=== PATIENT | female | born 1985 | race Caucasian/White ===

== ENCOUNTER → 2018-05-25 | Outpatient (CLI) | payer SELFPAY ==
[~2018-05-25] MED LIST: CATHETER FLUSH 10 ML SYR IV PRN
--- NOTE | 2018-05-25 12:37 | Diagnostic Imaging Report ---
INDICATION: Mid and epigastric abdominal pain. TECHNIQUE: The patient was administered 5.4 mCi of technetium 99m Choletec and imaging over the abdomen was performed. At 1 hour, the patient ingested 8 ounces of Ensure and a gallbladder ejection fraction was calculated. FINDINGS: There is homogeneous uptake of activity by the liver. There is prompt excretion of activity into the common duct and gallbladder. Normal passage of activity into the small bowel is seen. The gallbladder ejection fraction is normal at 43%. IMPRESSION: Normal HIDA scan and gallbladder ejection fraction. Dictated by: Dictated on workstation # [id number]
== END ==
LOC: CARD 09:12
PROVIDERS: ATTEND Registered Nurse
DX: R10.13 Epigastric pain (principal); R11.0 Nausea; R19.7 Diarrhea, unspecified
CPT/HCPCS: 78227

== ENCOUNTER 2022-06-02 11:21 | Outpatient (CLI) | payer BC ==
[~2022-06-02] VITALS: Ht 167.7 cm; Wt 90.2 kg
[2022-06-02 11:15] VITALS: BP 133/75
[2022-06-02 11:47] LABS: BILIRUBIN,URINE NEGATIVE (NEGATIVE); CLARITY,URINE CLEAR; COLOR,URINE YELLOW; GLUCOSE, URINE (UA) NEGATIVE (NEGATIVE); KETONES,URINE NEGATIVE (NEGATIVE); LEUKOCYTE ESTERASE ,URINE 1+ (NEGATIVE); NITRITE,URINE NEGATIVE (NEGATIVE); PROTEIN,URINE NEGATIVE (NEGATIVE)
[2022-06-02 12:00] LABS: BACTERIA,URINE TRACE /HPF; WBC,URINE 0-2 /HPF
--- NOTE | 2022-06-03 08:06 | Physician Query-Final Dx ---
Clinic Account Progress/Dx Physician Query: Please give diagnosis Please include # weeks gestation Date of Service Jun 02, 2022 at 11:21 WHEAT,AugJun 03, 2022 08:06
== END 2022-06-02 12:35 | disposition home or self-care (01) ==
LOC: WSo 11:21 → LDRP 11:21 → WSo 12:35
PROVIDERS: ATTEND Family Medicine
DX: O20.9 Hemorrhage in early pregnancy, unspecified (principal); Z3A.00 Weeks of gestation of pregnancy not specified
CPT/HCPCS: 81000; 87088; G0463; 99212

== ENCOUNTER 2022-07-19 22:31 | Emergency (ER) | payer BC ==
[~2022-07-19] VITALS: Ht 168 cm; Wt 90.2 kg
[2022-07-19 22:36] VITALS: BP 138/93
[2022-07-19] MEDS ORDERED: HYDR28OI2 TP (22:40)
[2022-07-19] MEDS ORDERED: PNV1COMB25 PO (22:40)
[2022-07-19] MEDS ORDERED: LEVO25TA2 PO (22:40)
--- NOTE | 2022-07-19 23:02 | ED General ---
General Chief Complaint: Rect Problems Stated Complaint: 35 WEEKS , PAINFUL HEMORRHOIDS Nursing Triage Note: c/o rectal pain x2 weeks, worse x2 days. reports hx of hemmorhoids. 38 weeks . (TRACI TAVERAS) History of Present Illness Date Seen by Provider: Jul 19, 2022 Time Seen by Provider: 22:40 Initial Comments 37 yo female 35wks here for painful hemorrhoids x2 days. Pt said she had a flare last month that lasted 3-4 days and bled. She was given hydrocortisone cream with relief of sx. Today patient said pain has gotten worse since yesterday. She is unable to sleep, sit and pain is a constant stabbing, burning, throbbing pain. Has associated pain upon defecation but denies any blood per rectum. Pt has been using her hydrocortisone cream from her last flare and has taking Tylenol with no relief. No other complaints (TRACI TAVERAS) Allergies and Home Medications Allergies Coded Allergies: No Known Drug Allergies (Unverified , 07/19/22) Patient Home Medication List Home Medication List Reviewed: Yes (TRACI TAVERAS) Hydrocortisone Acetate (Hydrocortisone) 1 % Oint...g., 28 GM TP, (Reported) Entered as Reported by: KIN KAM on 07/19/222239 Last Action: New Order Levothyroxine Sodium (Synthroid) 25 Mcg Tablet, Unknown Dose PO, (Reported) Entered as Reported by: KIN KAM on 07/19/222239 Last Action: New Order Pnv #116/Iron Fumarate/FA/Dha (Expecta Combo Pack) 28 Mg Iron-800 Mcg- 200 Mg Combo..pkg, 1 EACH PO, (Reported) Entered as Reported by: KIN KAM on 07/19/222239 Last Action: New Order Review of Systems Review of Systems Constitutional: no symptoms reported EENTM: no symptoms reported Respiratory: no symptoms reported Cardiovascular: no symptoms reported Gastrointestinal: no symptoms reported Genitourinary: no symptoms reported : Yes Musculoskeletal: no symptoms reported Skin: no symptoms reported Psychiatric/Neurological: No Symptoms Reported Hematologic/Lymphatic: No Symptoms Reported Immunological/Allergic: no symptoms reported (TRACI TAVERAS) Past Dfxzpep-Lsuoda-Dotlpf Hx Patient Social History Tobacco Use?: No Substance use?: No Alcohol Use?: No Pt feels they are or have been: No (TRACI TAVERAS) Past Medical History Surgery/Hospitalization HX: c-sect, appy, hemmorhoids Appendectomy, Section Respiratory: No Currently Using CPAP: No Currently Using BIPAP: No Cardiac: No Neurological: No : Yes Hypothyroidsim (TRACI TAVERAS) Physical Exam Vital Signs Vital Signs - First Documented 07/19/22 22:36 Temp 36.9 Pulse 103 Resp 16 B/P (MAP) 138/93 (108) Pulse Ox 97 O2 Delivery Room Air (SHALINI BENÍTEZ MD) Vital Signs Capillary Refill : Less Than 3 Seconds (TRACI TAVERAS) Height, Weight, BMI Height: '" Weight: lbs. oz. kg; 31.00 BMI Method: General Appearance: No Apparent Distress, WD/WN HEENT: PERRL/EOMI, TMs Normal, Normal ENT Inspection, Pharynx Normal Neck: Full Range of Motion, Normal Inspection, Non Tender, Supple Respiratory: Chest Non Tender, Lungs Clear, Normal Breath Sounds, No Accessory Muscle Use, No Respiratory Distress Cardiovascular: Regular Rate, Rhythm, No Edema, No Gallop, No JVD, No Murmur, Normal Peripheral Pulses Extremity: Normal Capillary Refill, Normal Inspection, Normal Range of Motion, Non Tender Neurologic/Psychiatric: Alert, Oriented x3, No Motor/Sensory Deficits, Normal Mood/Affect, zinc etcher II-XII Norm as Tested (TRACI TAVERAS) Progress/Results/Core Measures Suspected Sepsis SIRS Temperature: Pulse: 103 Respiratory Rate: 16 Blood Pressure 138 /93 Mean: 108 (TRACI TAVERAS) Results/Orders Vital Signs/I&O 07/19/22 22:36 Temp 36.9 Pulse 103 Resp 16 B/P (MAP) 138/93 (108) Pulse Ox 97 O2 Delivery Room Air (SHALINI BENÍTEZ MD) Vital Signs/I&O Capillary Refill : Less Than 3 Seconds (TRACI TAVERAS) Blood Pressure Mean: 108 Departure Impression Primary Impression: Bleeding external hemorrhoids Disposition: 07 AGAINST MEDICAL ADVICE Condition: Against Medical Advice Departure-Patient Inst. Referrals: GRACIELA MA MD (PCP) Primary Care Physician ARIANA SOOD APRN (Family) Primary Care Physician Medical Student Attestation and Attending Note: This patient was interviewed and examined by Traci Taveras, MS 3. I was unable to interview or examine this patient personally as she left AMA before I was able to examine her. I was delayed in seeing this patient due to management of a t maren sensitive critical care case. Patient left without being seen by a physician. (SHALINI BENÍTEZ MD) Copy Copies To 1: GRACIELA MA MD, ANISHA T Jul 19, 2022 23:02 SHALINI BENÍTEZ MD Jul 20, 2022 07:40
== END 2022-07-20 00:18 | disposition left against medical advice (07) ==
LOC: EDUNIT# 22:31 → ER 22:33
DX: O22.43 Hemorrhoids in pregnancy, third trimester (principal); Z28.310 Unvaccinated for COVID-19; Z3A.35 35 weeks gestation of pregnancy

== ENCOUNTER 2022-07-30 05:35 | Outpatient (CLI) | payer BC ==
[~2022-07-30] VITALS: Ht 167.7 cm; Wt 97.7 kg
[~2022-07-30 05:35] MED LIST changes: -CATHETER FLUSH 10 ML SYR IV PRN; +HYDR28OI2 TP; +LEVO25TA2 PO; +PNV1COMB25 PO
[2022-07-30] MEDS ORDERED: LEVO150C4 PO (16:13)
== END 2022-07-30 16:41 | disposition home or self-care (01) ==
LOC: PREOP 05:35
PROVIDERS: ATTEND Obstetrics & Gynecology
DX: Z01.818 Encounter for other preprocedural examination (principal)

== ENCOUNTER 2022-08-06 05:28 | Inpatient (IN) | payer BC ==
[2022-08-06] VITALS (10 sets, daily range): BP systolic 106–137; BP diastolic 61–89
[~2022-08-06] VITALS: Ht 167.7 cm; Wt 98.2 kg
[~2022-08-06 05:28] MED LIST changes: +LEVO150C4 PO
[2022-08-06] MEDS ORDERED: D5 LR IV SOLUTION 1,000 ML IV SCH ×2 (12:45→15:00)
[2022-08-06] MEDS ORDERED: CITRIC ACID/SOB CIT (BICITRA) 30 ML UDC PO ONE (12:45)
[2022-08-06] MEDS ORDERED: METOCLOPRAMIDE INJ 10 MG/2 ML (REGLAN) IV ONE (12:45)
[2022-08-06] MEDS ORDERED: metroNIDAZOLE 500MG/100ML IVPB 100 ML IV ONE (12:45)
[2022-08-06] MEDS ORDERED: FAMOTIDINE 20MG/2ML IV (PEPCID) IV ONE (12:45)
[2022-08-06] MEDS ORDERED: ceFAZolin INJECTION 2,000 MG in NS (IVPB) 50 ML IV ONE (12:45)
[2022-08-06] MEDS ORDERED: LACTATED RINGERS 1,000 ML IV PRN (12:45)
[2022-08-06] MEDS ORDERED: ceFAZolin INJECTION 2,000 MG ONE (13:02)
[2022-08-06] MEDS ORDERED: NS (IVPB) 50 ML ONE (13:03)
[2022-08-06] MEDS ORDERED: OXYTOCIN PRE-MIX DRIP 1,000 ML IV ONE (13:12)
[2022-08-06] MEDS ORDERED: fentaNYL INJ 100 MCG/2 ML AMP ONE (13:12)
[2022-08-06] MEDS ORDERED: ONDANSETRON 4 MG/2 ML (SDV) Z0FRAN ONE (13:12)
[2022-08-06] MEDS ORDERED: BUPIVACAINE 0.5% 30 ML (SENSORCAINE) VIAL ONE (13:20)
[2022-08-06 13:28] LABS: BASOPHILS % (AUTO) 0 % (0-10); EOSINOPHILS # (AUTO) 0.1 10^3/uL (0.0-0.3); EOSINOPHILS % (AUTO) 1 % (0-10); HEMATOCRIT 31 % (35-52); HEMOGLOBIN 10.2 g/dL (11.5-16.0); LYMPHOCYTES # (AUTO) 1.3 10^3/uL (1.0-4.0); LYMPHOCYTES % (AUTO) 16 % (12-44); MEAN CORPUSCULAR HEMOGLOBIN 29 pg (25-34); MEAN CORPUSCULAR HGB CONC 33 g/dL (32-36); MEAN CORPUSCULAR VOLUME 89 fL (80-99); MEAN PLATELET VOLUME 12.1 fL (9.0-12.2); MONOCYTES # (AUTO) 0.6 10^3/uL (0.0-1.0); MONOCYTES % (AUTO) 8 % (0-12); NEUTROPHILS # (AUTO) 5.8 10^3/uL (1.8-7.8); NEUTROPHILS % (AUTO) 74 % (42-75); PLATELET COUNT 131 10^3/uL (130-400); WHITE BLOOD COUNT 7.8 10^3/uL (4.3-11.0)
[2022-08-06] MEDS ORDERED: TETANUS,DIPTH,PERTUSS P/F (BOOSTRIX) 0.5 ML VIAL IM ONE (15:00)
[2022-08-06] MEDS ORDERED: OXYTOCIN PRE-MIX DRIP 500 ML IV SCH (15:00)
[2022-08-06] MEDS ORDERED: PROMETHAZINE INJ 25 MG/ML (PHENERGAN) AMP IM PRN (15:00)
[2022-08-06] MEDS ORDERED: MEPERIDINE (DEMEROL) INJ 100 MG/ML IM PRN (15:00)
[2022-08-06] MEDS ORDERED: KETOROLAC 30 MG/ML VIAL ONE (15:07)
[2022-08-06] MEDS: KETOROLAC 30 MG/ML VIAL IV SCH ×2 (15:08→20:57)
[2022-08-06] MEDS: oxyCODONE/APAP 10/325MG (PERCOCET 10) TABLET PO PRN ×2 (17:01→23:06)
[2022-08-06] MEDS: DOCUSATE SODIUM 100 MG (COLACE) CAP PO SCH (20:33)
[2022-08-07] VITALS: BP 115/68
--- NOTE | 2022-08-07 00:08 | OPERATIVE REPORT ---
DATE OF SERVICE: 08/06/2022 PREOPERATIVE DIAGNOSIS: Term at 39 weeks' gestation with previous . POSTOPERATIVE DIAGNOSIS: Term at 39 weeks' gestation with previous . OPERATIVE PROCEDURE: Repeat low transverse delivery of a viable male with Apgars of 8 and 8 at 1 and 5 minutes respectively, weight of 7 pounds 11 ounces. Cord blood pH of 7.33 and a time of 1355. DESCRIPTION OF PROCEDURE: With the patient in the supine position, under satisfactory spinal analgesia, she was repositioned in supine and prepped and draped in the usual fashion for abdominal surgery. Mijares catheter was placed in the urinary bladder. A repeat Pfannenstiel incision was made through the skin with a scalpel. The patient's abdomen was entered in the usual manner. Bladder retractor was placed in position. Clean scalpel used to make a 4 cm hysterotomy incision transversely across the lower uterine segment that was extended bluntly as well. Soares forceps were applied to facilitate delivery of a vigorous viable male infant. Apgars and stats as noted above. The was bulb suctioned on delivery of the head and again upon completion of delivery. Umbilical cord was doubly clamped and cut and the infant passed to the pediatric nurse in attendance for delivery. Cord bloods were obtained. Placenta delivered spontaneously [place] it was normal with a 3-vessel cord. The uterus was exteriorized and the interior wiped clean with a wet laparotomy sponge. Uterine incision closed with a running locked suture of 2-0 Vicryl. Hemostasis was complete. The uterus was returned to the abdominal cavity. All blood clot and debris removed from the abdominal cavity. Sponge and needle counts were correct. Hemostasis was assured. Anterior parietal peritoneum was closed with running suture of 2-0 Vicryl and the rectus muscles were closed with sutures well. The rectus fascia was closed with 2-0 Vicryl. Subcutaneous tissue was closed with 2-0 Vicryl and the skin was stapled. Sponge and needle counts were correct on completion of the procedure. Blood loss was around 400 mL. The patient tolerated the procedure well and was transferred to the recovery room in stable condition. The remained at the bedside warmer under the care and attention of respiratory therapy and the pediatric nurse in attendance for delivery. Job ID: [id number] DocumentID: [id number] Dictated Date: 08/06/2022 15:07:23 Pack Master Date: 08/07/2022 00:06:00 Dictated By: EMIR NAZARIO MD
[2022-08-07] MEDS: KETOROLAC 30 MG/ML VIAL IV SCH (03:42)
[2022-08-07 03:45] VITALS: BP 138/77
[2022-08-07] MEDS: oxyCODONE/APAP 10/325MG (PERCOCET 10) TABLET PO PRN ×2 (07:43→13:57)
--- NOTE | 2022-08-07 07:56 | Progress Note ---
Standard Progress Note Progress Notes/Assess & Plan Date Seen by a Provider: Aug 07, 2022 Time Seen by a Provider: 07:54 Progress/Assessment & Plan This patient is without complaint. She is ambulating, voiding, tolerating oral intake well and has good pain control. Her baby was transferred to the NICU at [facility] in [place]. Report to her this morning indicated that baby was stable and improving. Patient is considering discharge today versus tomorrow Vital Signs Date Time Temp Pulse Resp B/P (MAP) Pulse Ox O2 Delivery O2 Flow Rate FiO2 08/07/22 03:45 36.7 77 18 138/77 (97) 96 Room Air 08/07/22 00:00 37.0 79 18 115/68 (84) 96 Room Air 08/06/22 20:25 36.4 83 18 133/79 (97) 96 Room Air 08/06/22 18:45 37.2 83 18 123/63 (83) 96 Room Air 08/06/22 16:46 Room Air 08/06/22 15:45 36.9 77 16 132/76 (94) 100 Room Air 08/06/22 15:20 36.2 19 106/89 (95) 98 Room Air 08/06/22 15:20 Room Air 08/06/22 15:10 36.2 14 119/61 (80) 97 Room Air 08/06/22 15:00 Room Air 08/06/22 15:00 36.2 15 119/61 (80) 97 08/06/22 14:50 36.2 16 112/79 (90) 97 Room Air 08/06/22 14:45 Room Air 08/06/22 14:30 36.2 16 116/71 (86) 96 Room Air 08/06/22 14:20 36.4 16 116/72 (87) 97 Room Air 08/06/22 12:25 36.9 77 18 98 Room Air I & O 08/07/22 07:00 Intake Total 4630 ml Output Total 1300 ml Balance 3330 ml Vital signs are stable. Patient is afebrile. The abdomen is benign. The surgical incision is clean dry and intact. Fundus is firm below the umbilicus and nontender Extremities show no clubbing cyanosis. There is no Homans' sign. Assessment and plan Postoperative day #1 status post repeat delivery at 38 weeks gestation. Patient is doing well. She will be discharged home today or tomorrow as she prefers Final Diagnosis 38-week repeat delivery EMIR NAZARIO MD Aug 07, 2022 07:56
[2022-08-07] MEDS ORDERED: OXYC1TAB12 PO (07:57)
[2022-08-07] MEDS ORDERED: IBUP-1780 PO (07:57)
[2022-08-07] MEDS ORDERED: DOCU100C37 PO (07:57)
--- NOTE | 2022-08-07 07:59 | Discharge Inst-Surgical ---
Discharge Inst-Surgical Depart Medication/Instructions New, Converted or Re-Newed RX: Transmitted to Pharmacy Consults/Follow Up Orders & Referrals Follow Up Appt: RTC 1 week for incision check with Dr. Linares. Call to make follow up appt. for patient in [address] Madison. Wound Care: Patient will return to clinic in 1 to 2 days for staple removal if discharged on postoperative day #1 Remove mandy, apply benzoin and steri strips if patient discharged on postoperative day #2. Activity Per routine post instructions. Diet as tolerated Patient may shower or tub bathe as desired. Continue home meds Activity Activity as Tolerated: No Diet Discharge Diet: No Restrictions EMIR LINARES MD Aug 07, 2022 07:59
--- NOTE | 2022-08-07 08:02 | Anesthesia-Regional Post-Op ---
Regional Patient Condition Mental Status: Alert, Oriented x3 Circulation: Same as Pre-Op Headache: Absent Sensation: Full Recovery Motor Block: Absent Post Op Complications Complications None Follow Up Care/Instructions Patient Instructions None needed. Anesthesia/Patient Condition Patient is doing well, no complaints, stable vital signs, no apparent adverse anesthesia problems. No complications reported per nursing. AYLA ZACARIAS CRNA Aug 07, 2022 08:02
[2022-08-07 08:50] VITALS: BP 132/73
[2022-08-07] MEDS: DOCUSATE SODIUM 100 MG (COLACE) CAP PO SCH (09:05)
[2022-08-07] MEDS: SIMETHICONE 80 MG (MYLICON) CHEW PO PRN ×2 (09:05→13:57)
[2022-08-07] MEDS: IBUPROFEN 800 MG (MOTRIN) TAB PO SCH ×2 (09:22→15:06)
[2022-08-07 13:30] VITALS: BP 138/76
[2022-08-07] MEDS ORDERED: IBUPROFEN 800 MG (MOTRIN) TAB PO SCH (15:00)
[2022-08-07 16:15] VITALS: BP 138/76
== END 2022-08-07 16:15 | disposition home or self-care (01) | DRG 788 ==
LOC: LDRP 12:10
PROVIDERS: ADMIT Obstetrics & Gynecology; ATTEND Obstetrics & Gynecology
PROC: 10D00Z1 Extraction of Products of Conception, Low, Open Approach (ICD-10-PCS; principal; 2022-08-06 13:36)
DX: O34.211 Maternal care for low transverse scar from previous cesarean delivery (principal); Z3A.39 39 weeks gestation of pregnancy; Z37.0 Single live birth; O99.334 Smoking (tobacco) complicating childbirth; F17.200 Nicotine dependence, unspecified, uncomplicated
CPT/HCPCS: 36415; 85025; 86850; 86900; 86901; 94664

== ENCOUNTER 2023-01-31 10:55 | Emergency (ER) | payer BC ==
[~2023-01-31] VITALS: Ht 157 cm; Wt 77.0 kg
[~2023-01-31 10:55] MED LIST changes: +DOCU100C37 PO; +IBUP-1780 PO; +OXYC1TAB12 PO
[2023-01-31] MEDS ORDERED: LORazepam 0.5 MG (ATIVAN) TABLET PO ONE (11:15)
[2023-01-31] MEDS ORDERED: ASPIRIN 81 MG CHEW (CHILDREN'S ASA) PO ONE (11:15)
[2023-01-31 11:20] LABS: BASOPHILS % (AUTO) 0 % (0-10); EOSINOPHILS # (AUTO) 0.1 10^3/uL (0.0-0.3); EOSINOPHILS % (AUTO) 1 % (0-10); HEMATOCRIT 41 % (35-52); HEMOGLOBIN 13.9 g/dL (11.5-16.0); LYMPHOCYTES # (AUTO) 1.7 10^3/uL (1.0-4.0); LYMPHOCYTES % (AUTO) 21 % (12-44); MEAN CORPUSCULAR HEMOGLOBIN 29 pg (25-34); MEAN CORPUSCULAR HGB CONC 34 g/dL (32-36); MEAN CORPUSCULAR VOLUME 87 fL (80-99); MONOCYTES # (AUTO) 0.6 10^3/uL (0.0-1.0); MONOCYTES % (AUTO) 7 % (0-12); NEUTROPHILS # (AUTO) 5.8 10^3/uL (1.8-7.8); NEUTROPHILS % (AUTO) 71 % (42-75); PLATELET COUNT 240 10^3/uL (130-400); WHITE BLOOD COUNT 8.2 10^3/uL (4.3-11.0)
--- NOTE | 2023-01-31 11:21 | ED Chest Pain ---
General Chief Complaint: Chest Pain Stated Complaint: PANIC ATTACK | CHEST PAIN Nursing Triage Note: PT AMB TO RM 8 PT STATES HAS C/P AND TIGHTNESS STARTED LAST NIGHT. RATES PAIN /10. PT STATES HAS SOA, NAUESA. PT ALSO STATES HAS SHAKINESS. PT STATES HAS BEEN SEEN FOR THIS IN RECENTLY IN OTHER ED FOR CHEST PAIN AND ANXIETY Source: patient Exam Limitations: no limitations History of Present Illness Date Seen by Provider: Jan 31, 2023 Time Seen by Provider: 11:18 Initial Comments Patient is a 38-year-old female with a history of anxiety who presents to ED with chest pain, tightness, shortness of breath. Patient states she has had these intermittent episodes for the past 2 to 3 months. Chest pain described as squeezing substernal with associated shortness of breath and nausea. She states last night started having chest tightness and shortness of breath. She did get some relief until this morning when she was getting ready for the day. She reports a squeezing sensation in the middle part of her chest. Shortness of breath with nausea. She is tearful. She states she is currently seeing a public relations coordinator for hypothyroidism. She currently takes 137 mcg of levothyroxine. They are currently making adjustments. She states she stopped drinking coffee. She had the Depo shot in September. She has had no vaginal ble eding. She denies any recent travels or surgeries, leg swelling. Denies cough, fever vomiting or diarrhea. No current abdominal pain. No pain with urination. She does have Ativan at home but has not taken any today. She was prescribed Zoloft but states the medication made her sick. Strong family cardiac history. Denies history of hypertension, diabetes, high cholesterol or smoking. Allergies and Home Medications Allergies Coded Allergies: No Known Drug Allergies (Unverified , 07/30/22) Patient Home Medication List Home Medication List Reviewed: Yes Docusate Sodium (Docusate Sodium) 100 Mg Capsule, 100 MG PO BID Prescribed by: EMIR MARIA on 08/07/22 0757 Ibuprofen (Ibuprofen) 800 Mg Tablet, 800 MG PO Q6H Prescribed by: EMIR MARIA on 08/07/22 0757 Levothyroxine Sodium (Levothyroxine) 150 Mcg Capsule, 150 MCG PO UD, (Reported) Entered as Reported by: COLIN GILL on 07/30/22 1613 Oxycodone HCl/Acetaminophen (Percocet 10-325 mg Tablet) 1 Each Tablet, 1 TAB PO Q6H PRN for PAIN-MODERATE (5-7) Prescribed by: EMIR MARIA on 08/07/22 0758 Pnv #116/Iron Fumarate/FA/Dha (Expecta Combo Pack) 28 Mg Iron-800 Mcg- 200 Mg Combo..pkg, 1 EACH PO, (Reported) Entered as Reported by: KIN KAM on 07/19/22 2240 Review of Systems Review of Systems Constitutional: No chills, No diaphoresis, No malaise, No weakness EENTM: No Blurred Vision, No Eye Pain Respiratory: Denies Cough, Denies Orthopnea; Shortness of Air Cardiovascular: Chest Pain; Denies Edema Gastrointestinal: Denies Abdominal Pain, Denies Diarrhea; Nausea; Denies Vomiting Genitourinary: Denies Burning, Denies Discharge, Denies Drainage, Denies Frequency Musculoskeletal: No back pain, No joint pain Skin: No change in color, No change in hair/nails Psychiatric/Neurological: Anxiety All Other Systems Reviewed Negative Unless Noted: Yes Past Jbbhrty-Rvbbhz-Yedevk Hx Patient Social History Tobacco Use?: No Substance use?: No Alcohol Use?: No Pt feels they are or have been: No Immunizations Up To Date Tetanus Booster (TDap): Unknown Seasonal Allergies Seasonal Allergies: Yes Past Medical History Surgery/Hospitalization HX: c-sect, appy, hemmorhoids Surgeries: Yes (C/S X2) Appendectomy, Section Respiratory: No Currently Using CPAP: No Currently Using BIPAP: No Cardiac: No Neurological: No Genitourinary: No Gastrointestinal: Yes Chronic Constipation, Hemorrhoids Musculoskeletal: Yes Fractures Endocrine: Yes Hyperthyroidism HEENT: Yes (GLASSES) 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 oz. kg; 31.00 BMI Method: General Appearance: No Apparent Distress, WD/WN HEENT: PERRL/EOMI, TMs Normal, Normal ENT Inspection, Pharynx Normal Neck: Full Range of Motion, Normal Inspection, Non Tender, Supple Respiratory: Chest Non Tender, Lungs Clear, Normal Breath Sounds, No Accessory Muscle Use, No Respiratory Distress Cardiovascular: Regular Rate, Rhythm, No Edema, No Gallop, No JVD, No Murmur Gastrointestinal: Normal Bowel Sounds, No Organomegaly, No Pulsatile Mass, Non Tender Extremity: Normal Capillary Refill, Normal Inspection, Normal Range of Motion, Non Tender Neurologic/Psychiatric: Alert, Oriented x3, No Motor/Sensory Deficits, Normal Mood/Affect, carriage dogger II-XII Norm as Tested Skin: Normal Color, Warm/Dry Progress/Results/Core Measures Results/Orders Lab Results Laboratory Tests Test 01/31/23 11:10 01/31/23 11:30 Range/Units White Blood Count 8.2 4.3-11.0 10^3/uL Red Blood Count 4.73 3.80-5.11 10^6/uL Hemoglobin 13.9 11.5-16.0 g/dL Hematocrit 41 35-52 % Mean Corpuscular Volume 87 80-99 fL Mean Corpuscular Hemoglobin 29 25-34 pg Mean Corpuscular Hemoglobin Concent 34 32-36 g/dL Red Cell Distribution Width 13.3 10.0-14.5 % Platelet Count 240 130-400 10^3/uL Mean Platelet Volume 11.0 9.0-12.2 fL Immature Granulocyte % (Auto) 0 % Neutrophils (%) (Auto) 71 42-75 % Lymphocytes (%) (Auto) 21 12-44 % Monocytes (%) (Auto) 7 0-12 % Eosinophils (%) (Auto) 1 0-10 % Basophils (%) (Auto) 0 0-10 % Neutrophils # (Auto) 5.8 1.8-7.8 10^3/uL Lymphocytes # (Auto) 1.7 1.0-4.0 10^3/uL Monocytes # (Auto) 0.6 0.0-1.0 10^3/uL Eosinophils # (Auto) 0.1 0.0-0.3 10^3/uL Basophils # (Auto) 0.0 0.0-0.1 10^3/uL Immature Granulocyte # (Auto) 0.0 0.0-0.1 10^3/uL Prothrombin Time 12.7 12.2-14.7 SEC INR Comment 0.9 0.8-1.4 Activated Partial Thromboplast Time 32 24-35 SEC D-Dimer 1.10 H 0.00-0.49 UG/ML Sodium Level 142 135-145 MMOL/L Potassium Level 3.6 3.6-5.0 MMOL/L Chloride Level 109 H 98-107 MMOL/L Carbon Dioxide Level 23 21-32 MMOL/L Anion Gap 10 5-14 MMOL/L Blood Urea Nitrogen 9 7-18 MG/DL Creatinine 0.83 0.60-1.30 MG/DL Estimat Glomerular Filtration Rate 92 BUN/Creatinine Ratio 11 Glucose Level 111 H 70-105 MG/DL Calcium Level 9.6 8.5-10.1 MG/DL Corrected Calcium 8.5-10.1 MG/DL Magnesium Level 2.1 1.6-2.4 MG/DL Total Bilirubin 0.8 0.1-1.0 MG/DL Aspartate Amino Transf (AST/SGOT) 16 5-34 U/L Alanine Aminotransferase (ALT/SGPT) 18 0-55 U/L Alkaline Phosphatase 70 40-136 U/L Myoglobin 33.3 10.0-92.0 NG/ML Troponin I < 0.028 <0.028 NG/ML B-Type Natriuretic Peptide 44.1 <100.0 PG/ML Total Protein 7.9 6.4-8.2 GM/DL Albumin 4.6 H 3.2-4.5 GM/DL Lipase 24 8-78 U/L Thyroid Stimulating Hormone (TSH) 0.14 L 0.35-4.94 UIU/ML Urine Color YELLOW Urine Clarity CLEAR Urine pH 6.0 5-9 Urine Specific [place] <=1.005 1.016-1.022 Urine Protein NEGATIVE NEGATIVE Urine Glucose (UA) NEGATIVE NEGATIVE Urine Ketones NEGATIVE NEGATIVE Urine Nitrite NEGATIVE NEGATIVE Urine Bilirubin NEGATIVE NEGATIVE Urine Urobilinogen 0.2 < = 1.0 MG/DL Urine Leukocyte Esterase NEGATIVE NEGATIVE Urine RBC (Auto) NEGATIVE NEGATIVE Urine RBC NONE /HPF Urine WBC NONE /HPF Urine Squamous Epithelial Cells 0-2 /HPF Urine Crystals NONE /LPF Urine Bacteria NEGATIVE /HPF Urine Casts NONE /LPF Urine Mucus NEGATIVE /LPF Urine Culture Indicated NO Urine Test NEGATIVE NEGATIVE My Orders Orders - TONY LI PA Ekg Tracing (01/31/23 10:58) Cbc With Automated Diff (01/31/23 11:12) Magnesium (01/31/23 11:12) Chest 1 View, Ap/Pa Only (01/31/23 11:12) Comprehensive Metabolic Panel (01/31/23 11:12) Myoglobin Serum (01/31/23 11:12) Protime With Inr (01/31/23 11:12) Partial Thromboplastin Time (01/31/23 11:12) Monitor-Rhythm Ecg Trace Only (01/31/23 11:12) Ed Iv/Invasive Line Start (01/31/23 11:12) Lipase (01/31/23 11:12) Bnp Sreekanth (01/31/23 11:12) Fibrin Degradation Products (01/31/23 11:12) Troponin I Real (01/31/23 11:12) Aspirin Chewable Tablet (Baby Aspirin Ch (01/31/23 11:15) Thyroid Stimulating Hormone (01/31/23 11:14) Lorazepam Tablet (Ativan Tablet) (01/31/23 11:15) Ua Culture If Indicated (01/31/23 11:17) Hcg,Qualitative Urine (01/31/23 11:17) Ct Angio Chest W (R/O Pe) (01/31/23 11:39) Iohexol Injection (Omnipaque 350 Mg/Ml 1 (01/31/23 12:30) Received Contrast (Hold Metformin- Contr (01/31/23 12:30) Ns (Ivpb) (Sodium Chloride 0.9% Ivpb Bag (01/31/23 12:30) Medications Given in ED Current Medications Medications Dose Ordered Sig/Annika Route Start Time Stop Time Status Last Admin Dose Admin Aspirin 324 mg ONCE ONCE PO 01/31/23 11:15 01/31/23 11:16 DC 01/31/23 11:21 324 MG Iohexol 100 ml ONCE ONCE IV 01/31/23 12:30 01/31/23 12:35 DC 01/31/23 12:38 75 ML Lorazepam 0.5 mg ONCE ONCE PO 01/31/23 11:15 01/31/23 11:16 DC 01/31/23 11:21 0.5 MG Sodium Chloride 100 ml ONCE ONCE IV 01/31/23 12:30 01/31/23 12:35 DC 01/31/23 12:38 80 ML Vital Signs/I&O 01/31/23 01/31/23 11:00 13:02 Temp 36.1 Pulse 88 77 Resp 16 B/P (MAP) 134/99 (111) 118/79 Pulse Ox 99 97 O2 Delivery Room Air Blood Pressure Mean: 111 Comment Sinus rhythm, incomplete right bundle branch block, 85 bpm, QRS duration 99 MS, QTc 413 MS. Departure Communication (PCP) Reviewed previous ER visits, H&P, lab testing. Differential diagnosis, ACS, pericarditis, pneumonia, anxiety attack, hyperthyroidism. Patient is a 38-year-old female with a history of hyperthyroidism. She is currently on 137 mcg of levothyroxine. Currently being managed by endocrinology. Outpatient ultrasound of her thyroid is in the works. She reports substernal chest pressure shortness of breath nausea. Symptoms over the past few months but states this pain started again last night as well as this morning. This appears to be intermittent. She cannot relate this chest pressure or shortness of breath with exertion or activities. She is tearful and appears anxious. No known cardiac history. Strong family cardiac history. She has no significant cardiac risk factors besides family history. Heart score low risk. Cardiac work-up, TSH was ordered, chest x-ray. CBC, CMP grossly unremarkable. She had a normal troponin. BNP negative. D-dimer was 1.10. TSH is 0.14. Recently change in her levothyroxine. Chest x-ray was negative for pneumonia, pneumothorax. EKG showed normal sinus rhythm without evidence of arrhythmia, ST elevation or depression. CT angio of the chest was negative for acute abnormality but did note right sided thyroid nodule. Recommend further outpatient with ultrasound. Scrum Coach is aware. She did receive aspirin 324 mg and a dose of Ativan. Discussed with patient that her symptoms could be related to anxiety versus her abnormal thyroid. Discussed contacting her primary care physician for further evaluation. I do think is reasonable since she has a strong family cardiac history for outpatient cardiac evaluation. Provided cardiology consult. Discussed other ways to control her symptoms such as breathing techniques when she has these episodes. Patient negative for . No evidence of infection. No focal neural deficits. She is feeling much better at this time. Recommend further evaluation with endocrinology and cardiology. Return precaution were discussed such as worsening chest pain shortness of breath. Patient vital signs stable Impression Primary Impression: Chest pain Disposition: 01 HOME, SELF-CARE Condition: Stable Departure-Patient Inst. Decision time for Depature: 12:55 Referrals: GRACIELA MA MD (PCP) Primary Care Physician ARIANA SOOD APRN (Family) Primary Care Physician THOR CHOI MD Patient Instructions: Chest Pain (DC) Add. Discharge Instructions: Recommend following up with your public relations coordinator regarding the ultrasound of your thyroid. Provided cardiology outpatient follow-up. May consider taking the Ativan if having panic attack. If any worsening symptoms return back to ED All discharge instructions reviewed with patient and/or family. Voiced understcristiana rayo. TONY LI Jan 31, 2023 11:21
[2023-01-31 11:30] LABS: INR 0.9 (0.8-1.4); PROTHROMBIN TIME PATIENT 12.7 SEC (12.2-14.7)
[2023-01-31 11:31] LABS: ALBUMIN 4.6 GM/DL (3.2-4.5); CHLORIDE 109 MMOL/L (98-107); POTASSIUM 3.6 MMOL/L (3.6-5.0); SODIUM 142 MMOL/L (135-145)
[2023-01-31 11:33] LABS: CALCIUM 9.6 MG/DL (8.5-10.1); FIBRIN DEGRADATION PRODUCTS 1.1 UG/ML (0.00-0.49)
[2023-01-31 11:34] LABS: GLUCOSE 111 MG/DL (70-105); TOTAL PROTEIN 7.9 GM/DL (6.4-8.2)
[2023-01-31 11:35] LABS: CARBON DIOXIDE 23 MMOL/L (21-32)
[2023-01-31 11:36] LABS: BILIRUBIN,TOTAL 0.8 MG/DL (0.1-1.0)
[2023-01-31 11:37] LABS: ALKALINE PHOSPHATASE 70 U/L (40-136); CREATININE SERUM 0.83 MG/DL (0.60-1.30); GFR ESTIMATED 92
[2023-01-31 11:38] LABS: BUN/CREATININE RATIO 11
[2023-01-31 11:40] LABS: ALANINE AMINOTRANSFERASE 18 U/L (0-55); MAGNESIUM 2.1 MG/DL (1.6-2.4)
[2023-01-31 11:41] LABS: LIPASE 24 U/L (8-78)
[2023-01-31 11:43] LABS: BILIRUBIN,URINE NEGATIVE (NEGATIVE); CLARITY,URINE CLEAR; COLOR,URINE YELLOW; GLUCOSE, URINE (UA) NEGATIVE (NEGATIVE); KETONES,URINE NEGATIVE (NEGATIVE); LEUKOCYTE ESTERASE ,URINE NEGATIVE (NEGATIVE); NITRITE,URINE NEGATIVE (NEGATIVE); PROTEIN,URINE NEGATIVE (NEGATIVE)
--- NOTE | 2023-01-31 11:45 | Diagnostic Imaging Report ---
EXAMINATION: Chest 1 view HISTORY: Chest pain COMPARISON: None available. FINDINGS: Heart size and pulmonary vasculature are normal. The lungs are clear without consolidation, pleural effusion, or pneumothorax. The osseous structures are intact. IMPRESSION: 1. No acute radiographic abnormality in the chest. Dictated by: Dictated on workstation # [id number]
[2023-01-31 11:50] LABS: BACTERIA,URINE NEGATIVE /HPF; SQUAMOUS EPITHELIAL CELL,UR 0-2 /HPF
[2023-01-31] MEDS ORDERED: HOLD METFORMIN - RECEIVED CONTRAST 20 ML VIAL IV SCH (12:30)
[2023-01-31] MEDS ORDERED: NS 100 ML (IVPB) BAG IV ONE (12:30)
[2023-01-31] MEDS ORDERED: IOHEXOL 350 MG/ML 100 ML (OMNIPAQUE 350) VIAL IV ONE (12:30)
--- NOTE | 2023-01-31 12:49 | Diagnostic Imaging Report ---
PROCEDURE: CT angiography Chest TECHNIQUE: After intravenous administration of contrast, thin section axial CT angiography of the chest was performed. 3D MIP reconstructions were made. All CT scans use one or more of the following dose optimizing techniques: automated exposure control, MA and/or KvP adjustment based on a patient size and exam type, or iterative reconstruction. INDICATION: Chest pain COMPARISON: None available. FINDINGS: Vasculature: No pulmonary emboli. No CT evidence of pulmonary hypertension or right ventricular strain. Thoracic aorta is normal in caliber. No aortic dissection or pseudoaneurysm. Heart and mediastinum: Potential right-sided thyroid nodule versus hypertrophy of the right thyroid lobe. No supraclavicular, axillary, or intra-thoracic lymphadenopathy. The heart is normal in size without pericardial effusion. Pleura: No pleural effusion or pneumothorax. Lungs and airway: No endoluminal lesion in the trachea or central bronchi. No pneumonia or edema. No suspicious pulmonary nodules. Upper abdomen: No concerning abnormality in the upper abdomen. Musculoskeletal: No concerning osseous lesion. IMPRESSION: 1. No acute cardiopulmonary process. Specifically, no pulmonary emboli or acute aortic syndrome. 2. Potential right thyroid nodule versus asymmetric hypertrophy of the right thyroid lobe. A nonemergent/outpatient thyroid ultrasound is suggested for further workup. Dictated by: Dictated on workstation # [id number]
[2023-01-31 13:02] VITALS: BP 118/79
== END 2023-01-31 13:05 | disposition home or self-care (01) ==
LOC: EDUNIT# 10:55 → ER 10:56
DX: R07.2 Precordial pain (principal); R06.02 Shortness of breath; R11.0 Nausea; E05.90 Thyrotoxicosis, unspecified without thyrotoxic crisis or storm; Z79.890 Hormone replacement therapy
CPT/HCPCS: 36415; 71045; 71275; 80053; 81000; 83690; 83735; 83874; 83880; 84443; 84484; 84703; 85025; 85379; 85610; 85730; 93005; 93041

== ENCOUNTER → 2023-03-24 | Outpatient (CLI) | payer BC ==
[~2023-03-24] MED LIST changes: +LEVO137C4 PO; +LORA-405 SL
== END ==
LOC: CARD 07:51
PROVIDERS: ATTEND Family Medicine
DX: R00.2 Palpitations (principal)
CPT/HCPCS: 93225; 93226

== ENCOUNTER 2023-03-26 06:16 | Outpatient (CLI) | payer BC ==
[~2023-03-26] VITALS: Ht 167.6 cm; Wt 82.8 kg
[~2023-03-26 06:16] MED LIST changes: -LEVO137C4 PO; -LORA-405 SL
[2023-03-26] MEDS ORDERED: LORA-405 SL (11:19)
[2023-03-26] MEDS ORDERED: LEVO137C4 PO (11:19)
== END 2023-03-26 11:27 | disposition home or self-care (01) ==
LOC: PREOP 06:16
PROVIDERS: ATTEND Surgery
DX: Z01.818 Encounter for other preprocedural examination (principal)

== ENCOUNTER 2023-04-07 08:13 | Day surgery (SDC) | payer BC ==
[~2023-04-07] VITALS: Ht 167.6 cm; Wt 82.8 kg
[~2023-04-07 08:13] MED LIST changes: +LEVO137C4 PO; +LORA-405 SL
[2023-04-07] MEDS ORDERED: LACTATED RINGERS 1,000 ML 1,000 ML IV STA (08:14)
[2023-04-07] MEDS ORDERED: HURRICAINE EXT TUBE (BENZOCAINE) XX PRN (08:15)
--- NOTE | 2023-04-07 08:31 | Progress Note-Pre Operative ---
Pre-Operative Progress Note Date of Available H&P: Mar 18, 2023 Date H&P Reviewed: Apr 07, 2023 Time H&P Reviewed: 08:29 History & Physical: H&P Reviewed, Patient Examed, No changes noted Pre-Operative Diagnosis: Dysphagia GEOVANI DE LA CRUZ DO Apr 07, 2023 08:31
[2023-04-07 08:37] VITALS: BP 127/92
--- NOTE | 2023-04-07 10:00 | Anesthesia-General Post-Op ---
MAC Patient Condition Mental Status/LOC: Same as Preop Cardiovascular: Satisfactory Nausea/Vomiting: Absent Respiratory: Satisfactory Pain: Controlled Complications: Absent Post Op Complications Complications None Follow Up Care/Instructions Patient Instructions None needed. Anesthesiology Discharge Order Discharge Order Patient is doing well, no complaints, stable vital signs, no apparent adverse anesthesia problems. No complications reported per nursing. MINNIE TEAGUE CRNA Apr 07, 2023 10:00
--- NOTE | 2023-04-07 10:00 | Progress Note-Post Operative ---
Post-Operative Progess Note Surgeon (s)/Repair Service Dispatcher (s) Surgeon GEOVANI DE LA CRUZ DO Repair Service Dispatcher: none Pre-Operative Diagnosis Dysphagia Post-Operative Diagnosis Gastritis Procedure & Operative Findings Date of Procedure 04/07/23 Procedure Performed/Findings EGD with biopsy PROCEDURE NOTE: After informed consent was obtained, the patient was brought to the endoscopy suite, placed in bed in left lateral decubitus position. She was administered IV sedation by the STUD MASTER/MISTRESS who then monitored vitals the entire time, heart rate, blood pressure and pulse ox and the scope was inserted down the mouth through the esophagus into the stomach. On the way down, noted some mild esophagitis, took a picture, pushed into the stomach, pushed past the antrum into the duodenum. Duodenum looked good. Pulled back and did a biopsy of antrum, then retroflexed the scope, did not see a hiatal hernia, took a picture and then pulled the scope into the GE junction. I then did a biopsy of the GE junction. Pushed the scope back into the stomach, suctioned all the air out of the stomach. At this point pulled the scope up the esophagus and out the mouth. The patient tolerated the procedure, and she recovered in endoscopy suite. Anesthesia Type IV sedation by STUD MASTER/MISTRESS Estimated Blood Loss Estimated blood loss (mL): scant Specimens/Packing Specimens Removed antral bx GE jxn bx GEOVANI DE LA CRUZ DO Apr 07, 2023 10:00
--- NOTE | 2023-04-07 10:01 | Endoscopy Discharge Instruct ---
Endo Procedure/Findings Findings 1.: Gastritis Discharge Instructions - Activity: You might feel a little sleepy until tomorrow. This is due to the medicine you received to relax you. Until tomorrow, you should: NOT drive a car, operate machinery or power tools. NOT drink any alcoholic beverages. NOT make any important decisions or sign importortant papers. Do not return to work until tomorrow, unless otherwise instructed. Resume previous activities tomorrow. Diet: Start by taking liquids. If you tolerate liquids, advance to solid food. 1.: EGD in 3 years Notify Physician - If you experience excessive bleeding, unusual abdominal pain, fever, or chest pain, contact your doctor immediately. Follow-Up: Other Follow up in my office in one week GEOVANI DE LA CRUZ DO Apr 07, 2023 10:01
[2023-04-07 10:05] VITALS: BP 114/71
[2023-04-07 10:10] VITALS: BP 110/69
[2023-04-07 10:15] VITALS: BP 115/73
[2023-04-07 10:45] VITALS: BP 118/68
[2023-04-07 10:50] VITALS: BP 118/68
== END 2023-04-07 10:50 | disposition home or self-care (01) ==
LOC: ENDO 08:13
PROVIDERS: ATTEND Surgery
DX: K29.50 Unspecified chronic gastritis without bleeding (principal); K20.90 Esophagitis, unspecified without bleeding; Z87.891 Personal history of nicotine dependence
CPT/HCPCS: 84703; 88305; 88342